=== PATIENT | female | born 1985 | race Caucasian/White ===

== ENCOUNTER 2025-04-10 09:14 | Emergency (ER) | payer OTHER, SELFPAY ==
--- NOTE | 2025-04-10 09:21 | ED_ITS ---
HPI - Wound/Laceration General Chief Complaint: Wound/Laceration Stated Complaint: laceration in groin area Time Seen by Provider: 04/10/25 09:37 Source: patient and RN notes reviewed Mode of arrival: ambulatory Limitations: no limitations History of Present Illness HPI narrative: 40-year-old female presents to the [facility] with concerns for cutting herself with a razor blade over the weekend. Patient states she is concerned that it is infected, area is left posterior external labia, periarea. Reports she had an cellulitis or abscess a couple of years ago in the same area. Onset (ago): day(s) (-6) Related Data Home Medications ?Medication ?Instructions ?Recorded ?Confirmed ?Last Taken ?Type bupropion HCl 150 mg 24 hr tablet, mg PO 04/10/25 Unknown History extended release citalopram 20 mg tablet mg 04/10/25 Unknown History levothyroxine 50 mcg tablet mcg 04/10/25 Unknown History spironolactone 50 mg tablet mg 04/10/25 Unknown History Allergies Allergy/AdvReac Type Severity Reaction Status Date / Time Penicillins Allergy Unknown Rash Verified 04/10/25 09:35 Review of Systems 2 Review of Systems: All systems reviewed & are unremarkable except as noted in HPI and below Constitutional: Constitutional: Reports no additional constitutional complaints ENT: Reports system reviewed and no additional complaints, except as documented Cardiovascular: Cardiovascular: Reports no additional cardiovascular complaints, Denies chest pain and Denies dyspnea Respiratory: Respiratory: Reports no additional respiratory complaints, Denies chest congestion, Denies cough and Denies dyspnea Genitourinary: Genitourinary: Reports as per HPI Musculoskeletal: Musculoskeletal: Reports no additional musculoskeletal complaints Integumentary/Breasts: Skin/Breast: Reports as per HPI PMFSH Past Medical History Medical History (Updated 04/10/25 @ 15:54 by Sarah Castañeda APRN) Anxiety and depression History of thyroid disorder Comments At the time of my signature, I reviewed and agree with the nursing past medical, surgical, social, and family history. There is no relevant family history pertinent to the patient complaint. Exam 2 Const: General: cooperative, healthy appearing, comfortable, no acute distress, well developed, alert and well nourished Nutritional Appearance: w ell nourished Orientation/consciousness: patient oriented x3 Limitations: no limitations HENMT: Head: normal to inspection Eyes: General: appearance normal, both eyes and all related structures A lignment and Position: alignment normal Neck: Neck: normal visual inspection, full ROM, no lymphadenopathy and no meningeal signs Chest: Chest palpation & inspection: normal inspection of the chest Resp: Effort & Inspection: normal respiratory effort and able to speak in complete sentences Cardio: Rate: regular rate GI: GI Palp: No abdominal tenderness : Female genitals images: 1. Razor burn, irritation without significant erythema. No fluctuance. Skin: General skin exam: normal color Neuro: General: patient oriented x3, gait normal, moves all extremities and no meningeal signs Cognition (Neuro): normal cognition Speech: normal speech Gait exam (Neuro): Normal gait present Extrem: General: normal to inspection, full ROM, capillary refill normal and normal gait Psych: Appearance: grossly normal and well kempt Mental Status: mental status grossly normal Speech and movement: Normal speech and movement present and Clear speech present Affect: normal affect Attitude: cooperative Course Course Level of Care: Express Care Visit Vital Signs Vital signs: Vital Signs Temperature 97.7 F 04/10/25 09:34 Pulse Rate 70 04/10/25 09:34 Respiratory Rate 16 04/10/25 09:34 Blood Pressure 116/82 04/10/25 09:34 Pulse Oximetry 100 04/10/25 09:34 Temperature 97.7 F 04/10/25 09:34 Pulse Rate 70 04/10/25 09:34 Respiratory Rate 16 04/10/25 09:34 Blood Pressure 116/82 04/10/25 09:34 Pulse Oximetry 100 04/10/25 09:34 Reviewed MDM - Wound/Laceration MDM Narrative Medical decision making narrative: Patient sitting in exam room. Patient is nontoxic, vitals are stable. Patient presents with irritation to the vaginal area, external labia post shaving. Has razor burn Patient with undergarments rubbing on the irritated area. Due to patient's history, concern for or potential infection, will cover with Bactrim. Patient reports that she does have an appointment with counter intelligence technician next week. Patient appropriate for outpatient treatment with close follow-up Discharge instructions reviewed with patient, as well as provided in writing per nursing staff. The instructions also include specific and strict return/GO TO THE ER as well as f/u information. All questions have been answered, and the patient deny any further questions with discharge and discharge plan. Some parts of this dictation were generated by voice recognition software and may contain typographical and/or grammatical inaccuracies. Differential Diagnosis Differential diagnosis: Likely laceration, abscess, abrasion and avulsion of skin Critical Care Time Critical Care Time Critical Care Time: No Discharge Plan Discharge Clinical Impression: Irritation of skin of perianal region, Skin irritation from shaving Patient Disposition: Home Condition: Stable Instructions: Antibiotic Form, Cellulitis (ED) Additional Instructions: Wash area with soapy water twice daily, pat dry. Avoid wearing underwear, we wear loose-fitting clothing Do not shave Apply cool compresses Follow-up with primary care provider as already scheduled For new or worsening symptoms go directly to the emergency room Patient Language: Kazakh Prescriptions: New sulfamethoxazole-trimethoprim [Bactrim DS] 800-160 mg tablet 1 tablet PO Q12H Qty: 14 0RF No Action citalopram 20 mg tablet levothyroxine 50 mcg tablet spironolactone 50 mg tablet bupropion HCl 150 mg tablet extended release 24 hr PO Follow-up/Referrals: Stella,Sherrill Mac, HR INTERN [Primary Care Provider] - 1 Week (express care follow up) Time of Disposition: 09:50
[2025-04-10 09:34] VITALS: BP 116/82; PULSE 70; RESP 16; TEMP 36.5; O2SAT 100
== END 2025-04-10 09:57 | disposition home or self-care (01) ==
PROVIDERS: Emergency Provider Nurse Practitioner
DX: L98.8 Other specified disorders of the skin and subcutaneous tissue (principal); Z79.899 Other long term (current) drug therapy
CPT/HCPCS: 99203; G0463